=== PATIENT | male | born 1955 | race Caucasian/White ===

== ENCOUNTER 2019-02-28 06:13 | Emergency (ER) | payer MEDICAID ==
[~2019-02-28] VITALS: Ht 177.8 cm; Wt 65.0 kg
[~2019-02-28 06:13] MED LIST: BUPR1FIL3 SL; CLON0.1T PO; ONDA4TAB12 PO
[2019-02-28 06:14] VITALS: BP 150/98
--- NOTE | 2019-02-28 06:32 | NUR ---
SLIT LAMP PLACED IN ROOM
--- NOTE | 2019-02-28 06:32 | NUR ---
PT STATES HE WAS CUTTING WOOD THIS MORNING AND GOT SOMETHING IN HIS RIGHT EYE.
[2019-02-28] MEDS ORDERED: proparacaine 0.5% ophthalmic drops 15ml EACHEYE ONE (06:35)
[2019-02-28] MEDS ORDERED: CefTRIAXone 1000mg IM Kit (w/lidocaine diluent) IM ONE (07:05)
--- NOTE | 2019-02-28 07:19 | NUR ---
PT STATES THAT HE HAS BEEN BLIND IN HIS RIGHT EYE FOR 6 MONTHS.
--- NOTE | 2019-02-28 07:43 | NUR ---
IRRIGATE RIGHT EYE WITH SALINE 20MLS PER MD ORDER.
--- NOTE | 2019-02-28 07:58 | NUR ---
APPLY METAL PATCH OVER RIGHT UNDER WITH 2X2 GAUZE UNDER THE PATCH. PT ASKING FOR FOOD, NOTIFY DR LERMA. HE CAN HAVE FLUIDS, NO FOOD AT THIS TIME. NOTIFY PT. Addendum: 02/28/19 at 08 by MARILEE METAL EYE PATCH TO RIGHT EYE WITH 2X2 GAUZE.
--- NOTE | 2019-02-28 08:03 | NUR ---
PT GIVEN ORANGE AND APPLE JUICE.
[2019-02-28] MEDS ORDERED: HYDROcodone/acetaminophen 10/325mg tab PO ONE (08:45)
--- NOTE | 2019-02-28 08:51 | NUR ---
PT MEDICATED FOR EYE PAIN, PT GIVEN A SANDWICH AND A TAXI IS CALLED TO TAKE PT TO DR CARREON'S OFFICE DIRECTLY.
== END 2019-02-28 08:56 | disposition home or self-care (01) ==
LOC: ER 06:14
DX: S01.111A Laceration without foreign body of right eyelid and periocular area, initial encounter (principal); S05.01XA Injury of conjunctiva and corneal abrasion without foreign body, right eye, initial encounter; G89.29 Other chronic pain; F17.200 Nicotine dependence, unspecified, uncomplicated; F12.90 Cannabis use, unspecified, uncomplicated; Z98.890 Other specified postprocedural states; Z86.19 Personal history of other infectious and parasitic diseases; F11.90 Opioid use, unspecified, uncomplicated; Z56.0 Unemployment, unspecified; Z88.5 Allergy status to narcotic agent; Z79.899 Other long term (current) drug therapy; W22.8XXA Striking against or struck by other objects, initial encounter; Y93.89 Activity, other specified; Y92.89 Other specified places as the place of occurrence of the external cause; Y99.8 Other external cause status
CPT/HCPCS: 96372; 99283; J0696

== ENCOUNTER 2019-05-31 15:17 | Emergency (ER) | payer MEDICAID ==
[~2019-05-31] VITALS: Ht 177.8 cm; Wt 58.0 kg
--- NOTE | 2019-05-31 15:25 | NUR ---
Second call still not in lobby
[2019-05-31] MEDS ORDERED: HYDROcodone/acetaminophen 5mg/325mg tablet PO ONE (16:40)
[2019-05-31 18:01] LABS: BASOPHILS % (AUTO) 0.4 % (0-1); EOSINOPHILS % (AUTO) 0.3 % (0-6); HEMATOCRIT 36.7 % (42.0-52.0); HEMOGLOBIN 12.9 g/dl (14.0-17.9); LYMPHOCYTES # (AUTO) 1.7 X10'3 (1.1-4.8); LYMPHOCYTES % (AUTO) 17.2 % (21-51); MEAN CORPUSCULAR HEMOGLOBIN 32.4 PG (27.0-31.0); MEAN CORPUSCULAR HGB CONC 35.3 g/dL (33.0-36.5); MEAN CORPUSCULAR VOLUME 91.9 FL (78-98); MEAN PLATELET VOLUME 7.1 FL (7.4-10.4); MONOCYTES % (AUTO) 10.3 % (2-12); NEUTROPHILS # (AUTO) 7.3 X10'3 (1.8-7.7); NEUTROPHILS % (AUTO) 71.8 % (42-75); PLATELET COUNT 115 X10'3 (140-440); RED BLOOD COUNT 3.99 X10'6 (4.70-6.10); RED CELL DISTRIBUTION WIDTH 13.8 % (11.5-14.5); WHITE BLOOD COUNT 10.2 X10'3 (4.5-11.0)
[2019-05-31 18:10] LABS: ALANINE AMINOTRANSFERASE 67 U/L (12-78); ALBUMIN 2.9 G/DL (3.4-5.0); ALBUMIN/GLOBULIN RATIO 0.7 (1.1-1.5); ALKALINE PHOSPHATASE 70 IU/L (46-116); ANION GAP 8 (8-16); ASPARTATE AMINO TRANSFERASE 60 U/L (10-37); BILIRUBIN,TOTAL 0.7 MG/DL (0.1-1.0); BLOOD UREA NITROGEN 18 MG/DL (7-18); BUN/CREATININE RATIO 23.7 (5.4-32.0); CALCIUM 8.8 MG/DL (8.5-10.1); CHLORIDE 104 MMOL/L (99-107); CREATININE 0.76 MG/DL (0.60-1.10); GLUCOSE 113 MG/DL (70-104); POTASSIUM 3.6 MMOL/L (3.5-5.1); SODIUM 137 MMOL/L (135-145); TOTAL CARBON DIOXIDE 25.2 MMOL/L (24-32); TOTAL PROTEIN 7.2 G/DL (6.4-8.2); eGFR > 90 ML/MIN
[2019-05-31] MEDS ORDERED: CEPH250T PO (18:13)
[2019-05-31 18:30] VITALS: BP 96/61
--- NOTE | 2019-06-02 15:07 | NUR ---
CALLED [facility]. PT. LOST HIS RX... CALLED IN KEFLEX 250MG PO Q6 HOURS X 10 DAYS #40. CALLED AND LET PT. TO LET PT. KNOW...... [phone],,, UNABLE TO RECIEVE A MESSAGE
== END 2019-05-31 18:24 | disposition home or self-care (01) ==
LOC: ER 15:17
DX: S80.812A Abrasion, left lower leg, initial encounter (principal); S80.811A Abrasion, right lower leg, initial encounter; L03.116 Cellulitis of left lower limb; L03.115 Cellulitis of right lower limb; G89.29 Other chronic pain; F12.90 Cannabis use, unspecified, uncomplicated; F11.90 Opioid use, unspecified, uncomplicated; Z86.19 Personal history of other infectious and parasitic diseases; Z98.890 Other specified postprocedural states; Z56.0 Unemployment, unspecified; Z88.5 Allergy status to narcotic agent; Z79.899 Other long term (current) drug therapy; X58.XXXA Exposure to other specified factors, initial encounter; Y93.89 Activity, other specified; Y92.89 Other specified places as the place of occurrence of the external cause; Y99.8 Other external cause status
CPT/HCPCS: 36415; 80053; 85025; 99283

== ENCOUNTER 2020-02-17 14:20 | Emergency (ER) | payer MEDICAID ==
[~2020-02-17] VITALS: Ht 170.2 cm; Wt 67.3 kg
[2020-02-17] MEDS ORDERED: LIDO700A32 TOP (14:51)
[2020-02-17] MEDS ORDERED: NAPR-56 PO (14:51)
[2020-02-17 15:21] VITALS: BP 146/87
== END 2020-02-17 15:22 | disposition home or self-care (01) ==
LOC: ER 14:21
DX: M25.551 Pain in right hip (principal); K59.00 Constipation, unspecified; J44.9 Chronic obstructive pulmonary disease, unspecified; G89.29 Other chronic pain; F12.90 Cannabis use, unspecified, uncomplicated; F11.90 Opioid use, unspecified, uncomplicated; F17.200 Nicotine dependence, unspecified, uncomplicated; Z86.19 Personal history of other infectious and parasitic diseases; Z98.890 Other specified postprocedural states; Z56.0 Unemployment, unspecified; Z88.5 Allergy status to narcotic agent; Z79.899 Other long term (current) drug therapy
CPT/HCPCS: 99283

== ENCOUNTER 2021-06-12 00:32 | Inpatient (IN) | payer MEDICAID ==
[~2021-06-12] VITALS: Ht 177.8 cm; Wt 65.9 kg
[~2021-06-12 00:32] MED LIST changes: +LIDO700A32 TOP
[2021-06-12] MEDS ORDERED: acetaminophen 325mg tablet PO ONE (01:15)
[2021-06-12 02:01] LABS: BASOPHILS % (AUTO) 0.2 % (0-1); EOSINOPHILS % (AUTO) 0 % (0-6); HEMATOCRIT 35.2 % (42.0-52.0); HEMOGLOBIN 12.4 g/dl (14.0-17.9); LYMPHOCYTES # (AUTO) 0.9 X10'3 (1.1-4.8); LYMPHOCYTES % (AUTO) 6.9 % (21-51); MEAN CORPUSCULAR HGB CONC 35.4 g/dL (33.0-36.5); MEAN CORPUSCULAR VOLUME 87.7 FL (78-98); MEAN PLATELET VOLUME 7.3 FL (7.4-10.4); MONOCYTES # (AUTO) 1.1 X10'3 (0-0.9); MONOCYTES % (AUTO) 8.1 % (2-12); NEUTROPHILS % (AUTO) 84.8 % (42-75); PLATELET COUNT 143 X10'3 (140-440); RED BLOOD COUNT 4.02 X10'6 (4.70-6.10); RED CELL DISTRIBUTION WIDTH 13.7 % (11.5-14.5); WHITE BLOOD COUNT 12.9 X10'3 (4.5-11.0)
[2021-06-12 02:13] LABS: D-DIMER 1.52 MG/L FEU (0-0.50)
[2021-06-12 02:17] LABS: ALANINE AMINOTRANSFERASE 36 U/L (12-78); ALBUMIN 2.7 G/DL (3.4-5.0); ALBUMIN/GLOBULIN RATIO 0.6 (1.1-1.5); ALKALINE PHOSPHATASE 96 IU/L (46-116); ANION GAP 10 (8-16); ASPARTATE AMINO TRANSFERASE 50 U/L (10-37); BILIRUBIN,TOTAL 0.6 MG/DL (0.1-1.0); BLOOD UREA NITROGEN 15 MG/DL (7-18); CALCIUM 8.6 MG/DL (8.5-10.1); CHLORIDE 96 MMOL/L (99-107); CREATININE 0.88 MG/DL (0.60-1.10); GLUCOSE 129 MG/DL (70-104); MAGNESIUM 1.8 MG/DL (1.5-2.4); POTASSIUM 3.3 MMOL/L (3.5-5.1); SODIUM 131 MMOL/L (135-145); TOTAL CARBON DIOXIDE 25.1 MMOL/L (24-32); TOTAL PROTEIN 7.6 G/DL (6.4-8.2); eGFR 87 ML/MIN
[2021-06-12] MEDS ORDERED: TETanus/Pertussis (Acell)/Diphther VAC/PF (Tdap-Adult) 0.5ml syringe IMVAC ONE (02:50)
[2021-06-12] MEDS ORDERED: CefTRIAXone 2gm/D5W 50ml BAG 50 ML IV ONE (02:50)
[2021-06-12] MEDS ORDERED: bacitracin 15gm ointment TP ONE (02:50)
[2021-06-12] MEDS ORDERED: vancomycin/NS 1 GM ADD-VANTAGE 250 ML IV ONE (02:50)
[2021-06-12] MEDS ORDERED: ondansetron 4mg rapidly disintigrating tab PO PRN (04:05)
[2021-06-12] MEDS ORDERED: acetaminophen 325mg tablet PO PRN ×2 (04:05)
[2021-06-12] MEDS ORDERED: bisacodyl 10mg suppository rectal RC PRN (04:05)
[2021-06-12] MEDS ORDERED: magnesium hydroxide 30ml (MOM) UD suspension PO PRN (04:05)
[2021-06-12] MEDS ORDERED: diphenhydrAMINE 50 mg/ml inj IV PRN (04:05)
[2021-06-12] MEDS ORDERED: diphenhydrAMINE 25mg capsule PO PRN (04:05)
[2021-06-12] MEDS ORDERED: mag hydrox/Alum hydrox/simeth 30ml oral suspension PO PRN (04:05)
[2021-06-12] MEDS ORDERED: VANCOMYCIN 1GM/200ML IVPB 200 ML IV ONE (04:15)
[2021-06-12] MEDS ORDERED: TIZA-205 PO (04:27)
[2021-06-12] MEDS ORDERED: IBUP-1985 PO (04:27)
[2021-06-12] MEDS ORDERED: FLUO-167 PO (04:27)
[2021-06-12] MEDS ORDERED: DIAZ10TA4 PO (04:27)
[2021-06-12] MEDS: potassium Cl 20mEq in NS 1,000 ML IV SCH ×2 (04:34→13:16)
[2021-06-12] MEDS: morphine 2 MG/ML inj. syringe IV PRN ×3 (04:34→20:18)
[2021-06-12] MEDS ORDERED: morphine 4 MG/ML inj SYRINge IM PRN (06:05)
[2021-06-12] MEDS ORDERED: morphine 2 MG/ML inj. syringe IV PRN (06:05)
[2021-06-12] MEDS: HYDROcodone/acetaminophen 5mg/325mg tablet PO PRN ×4 (06:09→23:03)
[2021-06-12] MEDS ORDERED: morphine 4 MG/ML inj SYRINge IV PRN (06:10)
--- NOTE | 2021-06-12 06:14 | NUR ---
pt c/o severe pain to his legs, had dose of morphine at 0434. call out to dr gomez, orders taken for higher doses of pain medication, stated ok to give further dose of pain medication now.
[2021-06-12] MEDS ORDERED: diazepam 5mg tablet PO PRN (07:00)
[2021-06-12] MEDS: CefTRIAXone/D5W-Rocephin 1gm 50 ML IV SCH (09:00)
[2021-06-12 09:11] VITALS: BP 138/76
[2021-06-12] MEDS: tizanidine 4mg tablet PO SCH ×3 (10:22→20:06)
[2021-06-12] MEDS: pantoprazole 40mg Tablet.DR PO SCH (10:22)
[2021-06-12] MEDS: docusate sod 100mg capsule PO SCH ×2 (10:23→20:06)
[2021-06-12] MEDS: FLUoxetine 20mg capsule PO SCH (10:23)
[2021-06-12] MEDS: heparin, porcine 5000 units/ml vial SQ SCH ×2 (10:25→20:07)
[2021-06-12] MEDS: ondansetron/PF 4mg/2ml inj IV PRN (10:40)
[2021-06-12 11:00] VITALS: BP 143/78
--- NOTE | 2021-06-12 19:16 | NUR ---
Patient in room [facility]. I have received report from JADE Crawford and had the opportunity to ask questions and assume patient care.
--- NOTE | 2021-06-12 19:26 | NUR ---
Patient in room [facility]. I have received report from Gabi HANSEN and had the opportunity to ask questions and assume patient care.
[2021-06-12 20:00] VITALS: BP 89/49
[2021-06-12] MEDS: lactobacillus rhamnosus 10,000 MMU CELLS/CAPSULE PO SCH (20:06)
[2021-06-12 20:39] VITALS: BP 96/58
[2021-06-12 23:49] VITALS: BP 98/53
[2021-06-13] MEDS: potassium Cl 20mEq in NS 1,000 ML IV SCH ×3 (00:05→13:29)
[2021-06-13] MEDS: HYDROcodone/acetaminophen 5mg/325mg tablet PO PRN ×2 (02:59→08:15)
--- NOTE | 2021-06-13 04:28 | NUR ---
I have reviewed and agree with all interventions, assessments performed and documented by Denise HANSEN.
[2021-06-13] MEDS: morphine 2 MG/ML inj. syringe IV PRN ×3 (05:09→18:01)
--- NOTE | 2021-06-13 06:15 | NUR ---
Problems reprioritized. Patient report given, questions answered & plan of care reviewed with Gabi HANSEN.
--- NOTE | 2021-06-13 06:19 | NUR ---
Problems reprioritized. Patient report given, questions answered & plan of care reviewed with . JADE Crawford.
[2021-06-13 06:42] LABS: BASOPHILS % (AUTO) 0.1 % (0-1); EOSINOPHILS % (AUTO) 0.2 % (0-6); HEMATOCRIT 33.4 % (42.0-52.0); HEMOGLOBIN 11.5 g/dl (14.0-17.9); LYMPHOCYTES # (AUTO) 1.6 X10'3 (1.1-4.8); LYMPHOCYTES % (AUTO) 14.4 % (21-51); MEAN CORPUSCULAR HEMOGLOBIN 31.2 PG (27.0-31.0); MEAN CORPUSCULAR HGB CONC 34.6 g/dL (33.0-36.5); MEAN CORPUSCULAR VOLUME 90.1 FL (78-98); MEAN PLATELET VOLUME 8.2 FL (7.4-10.4); MONOCYTES # (AUTO) 1.2 X10'3 (0-0.9); MONOCYTES % (AUTO) 11.1 % (2-12); NEUTROPHILS % (AUTO) 74.2 % (42-75); PLATELET COUNT 117 X10'3 (140-440); RED CELL DISTRIBUTION WIDTH 13.7 % (11.5-14.5); WHITE BLOOD COUNT 10.9 X10'3 (4.5-11.0)
[2021-06-13 06:57] LABS: ALANINE AMINOTRANSFERASE 23 U/L (12-78); ALBUMIN/GLOBULIN RATIO 0.5 (1.1-1.5); ALKALINE PHOSPHATASE 87 IU/L (46-116); ANION GAP 5 (8-16); ASPARTATE AMINO TRANSFERASE 27 U/L (10-37); BILIRUBIN,TOTAL 0.7 MG/DL (0.1-1.0); BLOOD UREA NITROGEN 13 MG/DL (7-18); BUN/CREATININE RATIO 18.6 (5.4-32.0); CALCIUM 8.1 MG/DL (8.5-10.1); CHLORIDE 102 MMOL/L (99-107); GLUCOSE 112 MG/DL (70-104); POTASSIUM 3.6 MMOL/L (3.5-5.1); SODIUM 131 MMOL/L (135-145); TOTAL CARBON DIOXIDE 24.1 MMOL/L (24-32); TOTAL PROTEIN 6.3 G/DL (6.4-8.2); eGFR > 90 ML/MIN
[2021-06-13 07:00] VITALS: BP 99/61
--- NOTE | 2021-06-13 07:38 | NUR ---
message sent to dr mendoza regarding chest pain, pain meds, and painful urination
[2021-06-13] MEDS: tizanidine 4mg tablet PO SCH ×2 (08:14→13:16)
[2021-06-13] MEDS: FLUoxetine 20mg capsule PO SCH (08:14)
[2021-06-13] MEDS: pantoprazole 40mg Tablet.DR PO SCH (08:14)
[2021-06-13] MEDS: docusate sod 100mg capsule PO SCH ×2 (08:14→20:07)
[2021-06-13] MEDS: heparin, porcine 5000 units/ml vial SQ SCH ×2 (08:15→20:17)
[2021-06-13] MEDS: CefTRIAXone/D5W-Rocephin 1gm 50 ML IV SCH (08:15)
[2021-06-13] MEDS: lactobacillus rhamnosus 10,000 MMU CELLS/CAPSULE PO SCH ×2 (08:15→20:08)
[2021-06-13 10:00] VITALS: BP 129/84
--- NOTE | 2021-06-13 13:00 | NUR ---
Met with patient in regards to substance use and to see if patient was interested in treatment options. Patient would like to get established with [facility]. I gave patient my number to call me when he is going to be discharged and I will help him get set up there.
[2021-06-13] MEDS: vancomycin/NS 1 GM ADD-VANTAGE 250 ML X 1 DOSE IV SCH (13:16)
--- NOTE | 2021-06-13 16:37 | NUR ---
PAGER ID: [phone] MESSAGE: PAGER ID: [phone] MESSAGE: social work said that pt was taking suboxone. please resume. also do you want a urine cult for his c/o painful urination? [address] paresh german rn [phone]
[2021-06-13 18:00] VITALS: BP 111/61
[2021-06-13] MEDS: mineral oil/petrolatum, white cream 113gm jar TP SCH (18:00)
[2021-06-13] MEDS ORDERED: cefepime 1GM/NS ADD-VANTAGE 100 ML IV SCH (20:00)
[2021-06-13] MEDS: ondansetron/PF 4mg/2ml inj IV PRN (20:04)
[2021-06-14] VITALS: BP 112/67
[2021-06-14] MEDS: temazepam 15mg capsule PO PRN ×2 (00:50→21:42)
[2021-06-14] MEDS: tizanidine 4mg tablet PO SCH ×4 (00:50→21:42)
[2021-06-14 06:05] LABS: BASOPHILS # (AUTO) 0.1 X10'3 (0-0.2); BASOPHILS % (AUTO) 0.6 % (0-1); EOSINOPHILS # (AUTO) 0.1 X10'3 (0-0.9); EOSINOPHILS % (AUTO) 0.9 % (0-6); HEMATOCRIT 34.2 % (42.0-52.0); HEMOGLOBIN 11.7 g/dl (14.0-17.9); LYMPHOCYTES # (AUTO) 1.5 X10'3 (1.1-4.8); LYMPHOCYTES % (AUTO) 16.5 % (21-51); MEAN CORPUSCULAR HEMOGLOBIN 30.6 PG (27.0-31.0); MEAN CORPUSCULAR HGB CONC 34.4 g/dL (33.0-36.5); MEAN CORPUSCULAR VOLUME 88.9 FL (78-98); MEAN PLATELET VOLUME 8.3 FL (7.4-10.4); MONOCYTES # (AUTO) 0.8 X10'3 (0-0.9); NEUTROPHILS # (AUTO) 6.6 X10'3 (1.8-7.7); PLATELET COUNT 128 X10'3 (140-440); RED BLOOD COUNT 3.84 X10'6 (4.70-6.10); RED CELL DISTRIBUTION WIDTH 13.6 % (11.5-14.5)
[2021-06-14] MEDS: potassium Cl 20mEq in NS 1,000 ML IV SCH ×2 (06:05→17:01)
[2021-06-14 06:32] LABS: ALANINE AMINOTRANSFERASE 14 U/L (12-78); ALBUMIN 1.8 G/DL (3.4-5.0); ALBUMIN/GLOBULIN RATIO 0.4 (1.1-1.5); ALKALINE PHOSPHATASE 85 IU/L (46-116); ANION GAP 9 (8-16); ASPARTATE AMINO TRANSFERASE 29 U/L (10-37); BILIRUBIN,TOTAL 0.4 MG/DL (0.1-1.0); BLOOD UREA NITROGEN 14 MG/DL (7-18); BUN/CREATININE RATIO 21.9 (5.4-32.0); CALCIUM 8.1 MG/DL (8.5-10.1); CHLORIDE 108 MMOL/L (99-107); CREATININE 0.64 MG/DL (0.60-1.10); GLUCOSE 114 MG/DL (70-104); POTASSIUM 3.9 MMOL/L (3.5-5.1); SODIUM 138 MMOL/L (135-145); TOTAL CARBON DIOXIDE 21.3 MMOL/L (24-32); eGFR > 90 ML/MIN
[2021-06-14 07:00] VITALS: BP 114/61
[2021-06-14] MEDS: docusate sod 100mg capsule PO SCH ×2 (09:20→19:50)
[2021-06-14] MEDS: FLUoxetine 20mg capsule PO SCH (09:20)
[2021-06-14] MEDS: ondansetron/PF 4mg/2ml inj IV PRN (09:20)
[2021-06-14] MEDS: morphine 2 MG/ML inj. syringe IV PRN ×2 (09:20→19:51)
[2021-06-14] MEDS: mineral oil/petrolatum, white cream 113gm jar TP SCH (09:20)
[2021-06-14] MEDS: lactobacillus rhamnosus 10,000 MMU CELLS/CAPSULE PO SCH ×2 (09:20→19:50)
[2021-06-14] MEDS: heparin, porcine 5000 units/ml vial SQ SCH ×2 (09:21→19:58)
[2021-06-14] MEDS: cefepime 1GM in D5W 50mL 50 ML IV SCH ×2 (09:26→20:04)
[2021-06-14] MEDS: vancomycin/NS 1 GM ADD-VANTAGE 250 ML X 1 DOSE IV SCH (09:26)
[2021-06-14] MEDS: pantoprazole 40mg Tablet.DR PO SCH (09:26)
[2021-06-14 11:00] VITALS: BP 122/67
[2021-06-14] MEDS: traMADol 50MG tablet PO PRN ×2 (14:35→21:50)
[2021-06-14 19:37] VITALS: BP 115/66
[2021-06-14 21:30] LABS: CLARITY,URINE CLEAR (Clear); COLOR,URINE YELLOW (Yellow); GLUCOSE, URINE NEGATIVE (Neg); KETONES,URINE NEGATIVE (Neg); LEUKOCYTE ESTERASE ,URINE NEGATIVE (Neg); NITRITES, URINE NEGATIVE (Neg); OCCULT BLOOD,URINE NEGATIVE (Neg); PROTEIN,URINE NEGATIVE (Neg)
[2021-06-14 21:44] LABS: UA COLLECTION TYPE CLN CATCH MIDSTREAM
[2021-06-15] VITALS: BP 122/67
[2021-06-15] MEDS: potassium Cl 20mEq in NS 1,000 ML IV SCH ×3 (02:05→22:05)
[2021-06-15 05:47] LABS: BASOPHILS % (AUTO) 0.4 % (0-1); EOSINOPHILS # (AUTO) 0.1 X10'3 (0-0.9); HEMATOCRIT 33.5 % (42.0-52.0); HEMOGLOBIN 11.5 g/dl (14.0-17.9); LYMPHOCYTES # (AUTO) 1.6 X10'3 (1.1-4.8); MEAN CORPUSCULAR HEMOGLOBIN 30.5 PG (27.0-31.0); MEAN CORPUSCULAR HGB CONC 34.5 g/dL (33.0-36.5); MEAN CORPUSCULAR VOLUME 88.5 FL (78-98); MEAN PLATELET VOLUME 7.8 FL (7.4-10.4); MONOCYTES # (AUTO) 0.6 X10'3 (0-0.9); MONOCYTES % (AUTO) 8.7 % (2-12); NEUTROPHILS # (AUTO) 4.3 X10'3 (1.8-7.7); NEUTROPHILS % (AUTO) 65.9 % (42-75); PLATELET COUNT 160 X10'3 (140-440); RED BLOOD COUNT 3.78 X10'6 (4.70-6.10); RED CELL DISTRIBUTION WIDTH 13.6 % (11.5-14.5); WHITE BLOOD COUNT 6.5 X10'3 (4.5-11.0)
[2021-06-15 05:55] LABS: ALANINE AMINOTRANSFERASE 29 U/L (12-78); ALBUMIN 1.9 G/DL (3.4-5.0); ALBUMIN/GLOBULIN RATIO 0.4 (1.1-1.5); ALKALINE PHOSPHATASE 99 IU/L (46-116); ANION GAP 4 (8-16); ASPARTATE AMINO TRANSFERASE 40 U/L (10-37); BILIRUBIN,TOTAL 0.5 MG/DL (0.1-1.0); BLOOD UREA NITROGEN 11 MG/DL (7-18); BUN/CREATININE RATIO 15.5 (5.4-32.0); CALCIUM 8.1 MG/DL (8.5-10.1); CHLORIDE 106 MMOL/L (99-107); CREATININE 0.71 MG/DL (0.60-1.10); GLUCOSE 99 MG/DL (70-104); SODIUM 134 MMOL/L (135-145); TOTAL CARBON DIOXIDE 23.7 MMOL/L (24-32); TOTAL PROTEIN 6.4 G/DL (6.4-8.2); eGFR > 90 ML/MIN
[2021-06-15] MEDS: cefepime 1GM in D5W 50mL 50 ML IV SCH ×2 (07:40→21:03)
[2021-06-15] MEDS: heparin, porcine 5000 units/ml vial SQ SCH ×2 (07:41→21:04)
[2021-06-15] MEDS: pantoprazole 40mg Tablet.DR PO SCH (07:41)
[2021-06-15] MEDS: FLUoxetine 20mg capsule PO SCH (07:41)
[2021-06-15] MEDS: traMADol 50MG tablet PO PRN ×3 (07:41→21:09)
[2021-06-15] MEDS: tizanidine 4mg tablet PO SCH ×3 (07:42→21:03)
[2021-06-15] MEDS: docusate sod 100mg capsule PO SCH ×2 (07:42→21:16)
[2021-06-15] MEDS: lactobacillus rhamnosus 10,000 MMU CELLS/CAPSULE PO SCH ×2 (07:42→21:03)
[2021-06-15 08:00] VITALS: BP 139/73
[2021-06-15] MEDS: mineral oil/petrolatum, white cream 113gm jar TP SCH (10:00)
[2021-06-15] MEDS ORDERED: VANCOMYCIN LEVEL IV ONE (10:30)
[2021-06-15 11:00] VITALS: BP 124/73
[2021-06-15] MEDS: baclofen 10mg tablet PO PRN ×2 (12:32→21:05)
[2021-06-15] MEDS: VANCOmycin 1250MG/NS 250ml Bag 250 ML IV SCH ×2 (12:34→22:55)
[2021-06-15] MEDS: HYDROcodone/acetaminophen 10/325mg tab PO PRN (17:02)
[2021-06-15 18:00] VITALS: BP 136/71
[2021-06-15 19:34] VITALS: BP 136/71
[2021-06-15] MEDS: temazepam 15mg capsule PO PRN (21:03)
[2021-06-16] VITALS: BP 131/66
--- NOTE | 2021-06-16 00:59 | NUR ---
Patient,s son called around 0050 asking to speak with patient.Caller informed that pt would be informed to call him if awake.RN checked on patient who appeared to be sleeping .
[2021-06-16] MEDS: HYDROcodone/acetaminophen 10/325mg tab PO PRN (03:38)
--- NOTE | 2021-06-16 03:47 | NUR ---
Pt pulled IV out.Two attempts to start a new IV unsuccessful;[employer] DEVELOPER requested to assist.
--- NOTE | 2021-06-16 06:40 | NUR ---
Patient in room [facility]. I have received report from Mary HANSEN and had the opportunity to ask questions and assume patient care.
[2021-06-16 06:46] LABS: BASOPHILS % (AUTO) 0.3 % (0-1); EOSINOPHILS # (AUTO) 0.1 X10'3 (0-0.9); EOSINOPHILS % (AUTO) 1.4 % (0-6); HEMATOCRIT 33.9 % (42.0-52.0); HEMOGLOBIN 11.9 g/dl (14.0-17.9); LYMPHOCYTES # (AUTO) 1.3 X10'3 (1.1-4.8); LYMPHOCYTES % (AUTO) 19.3 % (21-51); MEAN CORPUSCULAR HEMOGLOBIN 30.9 PG (27.0-31.0); MEAN CORPUSCULAR VOLUME 88.4 FL (78-98); MEAN PLATELET VOLUME 7.6 FL (7.4-10.4); MONOCYTES # (AUTO) 0.5 X10'3 (0-0.9); MONOCYTES % (AUTO) 8.1 % (2-12); NEUTROPHILS # (AUTO) 4.6 X10'3 (1.8-7.7); NEUTROPHILS % (AUTO) 70.9 % (42-75); PLATELET COUNT 188 X10'3 (140-440); RED BLOOD COUNT 3.83 X10'6 (4.70-6.10); RED CELL DISTRIBUTION WIDTH 13.7 % (11.5-14.5); WHITE BLOOD COUNT 6.5 X10'3 (4.5-11.0)
[2021-06-16 07:00] VITALS: BP 146/81
--- NOTE | 2021-06-16 07:02 | NUR ---
Patient in room [facility] 345B. I have received report from JADE GILLETTE and had the opportunity to ask questions and assume patient care.
[2021-06-16 07:08] LABS: ALANINE AMINOTRANSFERASE 30 U/L (12-78); ALBUMIN 2.1 G/DL (3.4-5.0); ALBUMIN/GLOBULIN RATIO 0.4 (1.1-1.5); ALKALINE PHOSPHATASE 99 IU/L (46-116); ANION GAP 9 (8-16); ASPARTATE AMINO TRANSFERASE 37 U/L (10-37); BILIRUBIN,TOTAL 0.5 MG/DL (0.1-1.0); BLOOD UREA NITROGEN 11 MG/DL (7-18); BUN/CREATININE RATIO 16.7 (5.4-32.0); CALCIUM 8.3 MG/DL (8.5-10.1); CHLORIDE 108 MMOL/L (99-107); CREATININE 0.66 MG/DL (0.60-1.10); GLUCOSE 107 MG/DL (70-104); POTASSIUM 4.1 MMOL/L (3.5-5.1); SODIUM 140 MMOL/L (135-145); TOTAL CARBON DIOXIDE 22.7 MMOL/L (24-32); TOTAL PROTEIN 6.8 G/DL (6.4-8.2); eGFR > 90 ML/MIN
[2021-06-16] MEDS: pantoprazole 40mg Tablet.DR PO SCH (07:31)
[2021-06-16] MEDS: docusate sod 100mg capsule PO SCH (07:32)
[2021-06-16] MEDS: lactobacillus rhamnosus 10,000 MMU CELLS/CAPSULE PO SCH (07:33)
[2021-06-16] MEDS: FLUoxetine 20mg capsule PO SCH (07:34)
[2021-06-16] MEDS: tizanidine 4mg tablet PO SCH ×2 (07:35→14:07)
[2021-06-16] MEDS: heparin, porcine 5000 units/ml vial SQ SCH (07:37)
[2021-06-16] MEDS: mineral oil/petrolatum, white cream 113gm jar TP SCH (08:00)
[2021-06-16] MEDS: potassium Cl 20mEq in NS 1,000 ML IV SCH (08:05)
[2021-06-16] MEDS: cefepime 1GM in D5W 50mL 50 ML IV SCH (09:42)
--- NOTE | 2021-06-16 10:16 | NUR ---
PATIENT REFUSING LYNN RHODES TO LEGS Addendum: 06/16/21 at 1022 by Lynn Multani RN Amended: Links added.
[2021-06-16 11:00] VITALS: BP 125/78
[2021-06-16] MEDS: VANCOmycin 1250MG/NS 250ml Bag 250 ML IV SCH (11:41)
--- NOTE | 2021-06-16 11:41 | NUR ---
as clinical instructor i reviewed student documentation
--- NOTE | 2021-06-16 11:53 | NUR ---
Problems reprioritized. Patient report given, questions answered & plan of care reviewed with Mary HANSEN.
[2021-06-16] MEDS ORDERED: DOXY100C2 PO (13:47)
--- NOTE | 2021-06-16 15:08 | NUR ---
PATIENT STABLE AND APPROPRIATE FOR DISCHARGE, IV TAKEN OUT, EDUCATION GIVEN, PATIENT TAKEN TO LOBBY BY WHEELCHAIR TO AN AWAITING CAR WHERE FRIEND WILL TAKE PATIENT HOME
[2021-06-16] MEDS ORDERED: VANCOMYCIN LEVEL IV ONE (22:30)
== END 2021-06-16 15:08 | disposition home or self-care (01) | DRG 383 ==
LOC: ER 00:33 → ED HOLD 04:10 → SUR 3N 08:51
PROVIDERS: ADMIT Family Medicine; ATTEND Internal Medicine
PROC: 3E0234Z Introduction of Serum, Toxoid and Vaccine into Muscle, Percutaneous Approach (ICD-10-PCS; principal; 2021-06-12)
DX: L03.116 Cellulitis of left lower limb (principal); E87.1 Hypo-osmolality and hyponatremia; R29.6 Repeated falls; L03.115 Cellulitis of right lower limb; E86.1 Hypovolemia; E87.6 Hypokalemia; F17.210 Nicotine dependence, cigarettes, uncomplicated; I87.8 Other specified disorders of veins; R26.9 Unspecified abnormalities of gait and mobility; S80.812A Abrasion, left lower leg, initial encounter; S80.811A Abrasion, right lower leg, initial encounter; S80.12XA Contusion of left lower leg, initial encounter; S80.11XA Contusion of right lower leg, initial encounter; W18.39XA Other fall on same level, initial encounter; M54.50 Low back pain, unspecified; F32.A Depression, unspecified; G89.4 Chronic pain syndrome; J44.9 Chronic obstructive pulmonary disease, unspecified; B19.20 Unspecified viral hepatitis C without hepatic coma; Z23 Encounter for immunization; Z88.5 Allergy status to narcotic agent; Z87.01 Personal history of pneumonia (recurrent); Z56.0 Unemployment, unspecified; Z79.899 Other long term (current) drug therapy; Y93.89 Activity, other specified; Y92.89 Other specified places as the place of occurrence of the external cause; Y99.8 Other external cause status
CPT/HCPCS: 36415; 73590; 80053; 80202; 81003; 83605; 83735; 84145; 85025; 85379; 87040; 90471; 90715; 93971; 96365; 96368; 99285; G0378; J0692; J0696; J1644; J2270; J2405; J3370; J3480

== ENCOUNTER 2021-07-22 14:08 | Inpatient (IN) | payer MEDICAID ==
[~2021-07-22] VITALS: Ht 175.3 cm; Wt 59.0 kg
[~2021-07-22 14:08] MED LIST changes: -BUPR1FIL3 SL; -CLON0.1T PO; +DIAZ10TA4 PO; +FLUO-167 PO; +IBUP-1985 PO; -LIDO700A32 TOP; -ONDA4TAB12 PO; +TIZA-205 PO
[2021-07-22] MEDS ORDERED: iohexol 300mg/ml 100ml inj. ONE (14:40)
[2021-07-22 15:02] LABS: BASOPHILS % (AUTO) 0.1 % (0-1); EOSINOPHILS % (AUTO) 0.1 % (0-6); HEMATOCRIT 43.7 % (42.0-52.0); HEMOGLOBIN 14.4 g/dl (14.0-17.9); LYMPHOCYTES # (AUTO) 0.9 X10'3 (1.1-4.8); LYMPHOCYTES % (AUTO) 4.5 % (21-51); MEAN CORPUSCULAR HEMOGLOBIN 30.1 PG (27.0-31.0); MEAN CORPUSCULAR VOLUME 91.2 FL (78-98); MONOCYTES # (AUTO) 0.5 X10'3 (0-0.9); MONOCYTES % (AUTO) 2.4 % (2-12); NEUTROPHILS # (AUTO) 18.7 X10'3 (1.8-7.7); NEUTROPHILS % (AUTO) 92.9 % (42-75); PLATELET COUNT 125 X10'3 (140-440); RED BLOOD COUNT 4.79 X10'6 (4.70-6.10); RED CELL DISTRIBUTION WIDTH 15.7 % (11.5-14.5); WHITE BLOOD COUNT 20.2 X10'3 (4.5-11.0)
[2021-07-22 15:14] LABS: ALANINE AMINOTRANSFERASE 19 U/L (12-78); ALBUMIN 2.8 G/DL (3.4-5.0); ALBUMIN/GLOBULIN RATIO 0.5 (1.1-1.5); ALKALINE PHOSPHATASE 102 IU/L (46-116); ANION GAP 8 (8-16); ASPARTATE AMINO TRANSFERASE 29 U/L (10-37); BILIRUBIN,TOTAL 1.6 MG/DL (0.1-1.0); BLOOD UREA NITROGEN 34 MG/DL (7-18); BUN/CREATININE RATIO 42.5 (5.4-32.0); CALCIUM 9.4 MG/DL (8.5-10.1); CHLORIDE 95 MMOL/L (99-107); GLUCOSE 82 MG/DL (70-104); SODIUM 128 MMOL/L (135-145); TOTAL CARBON DIOXIDE 25.1 MMOL/L (24-32); TOTAL PROTEIN 8.1 G/DL (6.4-8.2); eGFR > 90 ML/MIN
[2021-07-22] MEDS ORDERED: morphine 5 MG/ML injection IV PRN (16:15)
[2021-07-22] MEDS ORDERED: morphine 4 MG/ML inj SYRINge IV PRN (16:30)
[2021-07-22] MEDS ORDERED: piperacillin/tazo 3.375gm/50ml 50 ML IV ONE (16:40)
[2021-07-22] MEDS ORDERED: normal saline 1000ML IV soln IV ONE (16:40)
[2021-07-22] MEDS ORDERED: ondansetron/PF 4mg/2ml inj IV PRN (20:15)
[2021-07-22] MEDS ORDERED: bisacodyl 10mg suppository rectal RC PRN (20:15)
[2021-07-22] MEDS ORDERED: acetaminophen 325mg tablet PO PRN ×2 (20:15)
[2021-07-22] MEDS ORDERED: diphenhydrAMINE 50 mg/ml inj IV PRN (20:15)
[2021-07-22] MEDS ORDERED: HYDROmorphone inj. 0.5 MG/0.5 ML DISP.SYRIN IV PRN (20:15)
[2021-07-22] MEDS ORDERED: ipratropium/albuterol 3ml nebule NEB PRN (20:15)
[2021-07-22] MEDS ORDERED: diphenhydrAMINE 25mg capsule PO PRN (20:15)
[2021-07-22] MEDS ORDERED: ondansetron 4mg rapidly disintigrating tab PO PRN (20:15)
[2021-07-22] MEDS ORDERED: magnesium hydroxide 30ml (MOM) UD suspension PO PRN (20:15)
[2021-07-22] MEDS ORDERED: metoclopramide 5 mg/ml inj IV PRN (20:15)
[2021-07-22] MEDS ORDERED: morphine 2 MG/ML inj. syringe IV PRN (20:15)
[2021-07-22] MEDS ORDERED: mag hydrox/Alum hydrox/simeth 30ml oral suspension PO PRN (20:15)
[2021-07-22] MEDS ORDERED: potassium CL 10mEq/100ml bag 100 ML IV PRN (20:50)
[2021-07-22] MEDS ORDERED: magnesium Cl slow-release 64mg tablet PO PRN (20:50)
[2021-07-22] MEDS ORDERED: magnesium 4gm in 100ml NS 100 ML IV PRN (20:50)
[2021-07-22] MEDS ORDERED: potassium Cl 20 mEq SR tablet PO PRN ×2 (20:50)
[2021-07-22] MEDS ORDERED: temazepam 15mg capsule PO PRN (21:00)
[2021-07-22 21:04] LABS: HEMOGLOBIN A1C 5.4 % (4.5-6.2)
[2021-07-22 23:00] VITALS: BP 108/54
[2021-07-22] MEDS: tizanidine 4mg tablet PO SCH (23:13)
[2021-07-22] MEDS: HYDROcodone/acetaminophen 5mg/325mg tablet PO PRN (23:13)
[2021-07-22] MEDS: normal saline 1000ml 1,000 ML IV SCH (23:14)
[2021-07-23] MEDS: vancomycin/NS 1 GM ADD-VANTAGE 250 ML IV SCH ×3 (01:09→20:32)
[2021-07-23 02:00] VITALS: BP 98/51
[2021-07-23] MEDS ORDERED: methadone 10mg tablet PO ONE ×2 (03:30→05:10)
--- NOTE | 2021-07-23 03:40 | NUR ---
Patient received from the ER at 11p, in alert and responsive state, with 9/10 chest pain, restless and diaphoretic. Patient administered [place] 5/325 PO PRN, and patient slept afterwards. At 2.30a patient woke up with screaming episodes, restless, diaphoretic, stating he was withdrawing from Methadone. Stated he had been on Methadone 50mg PO daily "For weeks", for treatment of heroine addiction. States he had been [facility]ad[facility] Will [facility] at 5am. MD Ward made aware, and ordered the patient to continue the medication here. Pharmacy notified, and they stated they cannot order the 50mg daily until verification from the [facility]. 20mg ordered one time, noted and carried out, and administered to the patient at 3.35am. Will continue to monitor patient.
[2021-07-23 06:00] VITALS: BP 100/54
[2021-07-23 06:45] LABS: URINE AMPHETAMINE SCREEN POSITIVE (Neg); URINE BARBITUATE SCREEN NEGATIVE (Neg); URINE BENZODIAZEPINES SCREEN NEGATIVE (Neg); URINE CANNABINOID SCREEN POSITIVE (Neg); URINE COCAINE SCREEN NEGATIVE (Neg); URINE METHADONE SCREEN POSITIVE (Neg); URINE OPIATE SCREEN POSITIVE (Neg); URINE PHENCYCLIDINE SCREEN NEGATIVE (Neg)
--- NOTE | 2021-07-23 06:45 | NUR ---
Patient in room PCU 3022. I have received report from AYESHA Herr and had the opportunity to ask questions and assume patient care.
[2021-07-23 06:46] LABS: CLARITY,URINE CLEAR (Clear); COLOR,URINE YELLOW (Yellow); GLUCOSE, URINE NEGATIVE (Neg); KETONES,URINE NEGATIVE (Neg); LEUKOCYTE ESTERASE ,URINE NEGATIVE (Neg); NITRITES, URINE NEGATIVE (Neg); OCCULT BLOOD,URINE NEGATIVE (Neg); PH,URINE 6.5 (4.8-8.0); PROTEIN,URINE NEGATIVE (Neg)
[2021-07-23 06:48] LABS: UA COLLECTION TYPE NON-SPECIFIED
[2021-07-23 07:06] LABS: BASOPHILS % (AUTO) 0.1 % (0-1); EOSINOPHILS % (AUTO) 0.3 % (0-6); HEMATOCRIT 34.9 % (42.0-52.0); HEMOGLOBIN 11.7 g/dl (14.0-17.9); LYMPHOCYTES # (AUTO) 0.8 X10'3 (1.1-4.8); LYMPHOCYTES % (AUTO) 6.8 % (21-51); MEAN CORPUSCULAR HEMOGLOBIN 30.5 PG (27.0-31.0); MEAN CORPUSCULAR HGB CONC 33.5 g/dL (33.0-36.5); MEAN PLATELET VOLUME 8.3 FL (7.4-10.4); MONOCYTES # (AUTO) 0.7 X10'3 (0-0.9); MONOCYTES % (AUTO) 5.6 % (2-12); NEUTROPHILS # (AUTO) 10.9 X10'3 (1.8-7.7); NEUTROPHILS % (AUTO) 87.2 % (42-75); PLATELET COUNT 90 X10'3 (140-440); RED BLOOD COUNT 3.84 X10'6 (4.70-6.10); RED CELL DISTRIBUTION WIDTH 15.1 % (11.5-14.5); WHITE BLOOD COUNT 12.5 X10'3 (4.5-11.0)
[2021-07-23 07:10] LABS: APTT 29 SECONDS (22-32)
[2021-07-23] MEDS: K and/or MAG REPLACEMENT MC SCH ×2 (08:00→20:00)
[2021-07-23] MEDS ORDERED: piperacillin/tazo 4.5gm/100ml 100 ML IV SCH (08:00)
[2021-07-23] MEDS: heparin, porcine 5000 units/ml vial SQ SCH ×2 (08:00→20:00)
[2021-07-23 08:06] LABS: ALANINE AMINOTRANSFERASE 11 U/L (12-78); ALBUMIN/GLOBULIN RATIO 0.5 (1.1-1.5); ALKALINE PHOSPHATASE 86 IU/L (46-116); ANION GAP 8 (8-16); ASPARTATE AMINO TRANSFERASE 25 U/L (10-37); BILIRUBIN,TOTAL 1.4 MG/DL (0.1-1.0); BLOOD UREA NITROGEN 27 MG/DL (7-18); BUN/CREATININE RATIO 40.3 (5.4-32.0); CALCIUM 8.4 MG/DL (8.5-10.1); CHLORIDE 104 MMOL/L (99-107); CHOL/HDL RATIO 2.8 (0.00-4.99); CHOLESTEROL 81 MG/DL (0-200); CREATININE 0.67 MG/DL (0.60-1.10); GLUCOSE 92 MG/DL (70-104); HDL CHOLESTEROL 29 MG/DL (35-60); LDL CHOLESTEROL 28 MG/DL (50-100); MAGNESIUM 2.3 MG/DL (1.5-2.4); PHOSPHORUS 2.4 MG/DL (2.3-4.5); SODIUM 136 MMOL/L (135-145); TOTAL CARBON DIOXIDE 23.6 MMOL/L (24-32); TOTAL PROTEIN 6.4 G/DL (6.4-8.2); TRIGLYCERIDES 78 MG/DL (20-135); eGFR > 90 ML/MIN
[2021-07-23] MEDS: pantoprazole 40mg Tablet.DR PO SCH (08:17)
[2021-07-23] MEDS: FLUoxetine 20mg capsule PO SCH (08:17)
[2021-07-23] MEDS: docusate sod 100mg capsule PO SCH ×2 (08:17→20:17)
[2021-07-23] MEDS: tizanidine 4mg tablet PO SCH ×3 (08:17→20:14)
[2021-07-23] MEDS: HYDROcodone/acetaminophen 5mg/325mg tablet PO PRN (08:24)
[2021-07-23 11:00] VITALS: BP 100/54
--- NOTE | 2021-07-23 11:18 | NUR ---
Malnutrition screen: Pt admitted s/p fall and dx of sepsis, PNA and R pleural effusion per EMR. Pt w/ fluctuating wt hx ranging from 59kg this admit to 80kg in 2015. Unable to interview pt as he was sleeping and did not wake to verbal cues. Pt observed at bedside w/ moderate facial wasting and mild clavicular muscle wasting, though unsure of baseline appearance. Currently pending PO intake, pt was asleep w/ breakfast tray in front of him. Pt has historically had good PO intake on previous admits per EMR. No edema noted. At this time pt does not meet minimum criteria for malnutrition. Will continue to monitor. Recs: 1. Continue Regular diet as tolerated 2. Monitor need for additional protein/ONS 3. Bowel care per rx 4. Scaled wts Addendum: 07/23/21 at [address] Amended: Links added.
[2021-07-23] MEDS: normal saline 1000ml 1,000 ML IV SCH (15:04)
[2021-07-23 15:05] VITALS: BP 93/50
[2021-07-23] MEDS: piperacillin/tazo 4.5gm/100ml 100 ML IV SCH (16:07)
--- NOTE | 2021-07-23 18:15 | NUR ---
Problems reprioritized. Patient report given, questions answered & plan of care reviewed with AEYSHA Llanes.
[2021-07-23 18:43] VITALS: BP 99/60
[2021-07-23] MEDS: lactobacillus rhamnosus 10,000 MMU CELLS/CAPSULE PO SCH (20:18)
[2021-07-23 22:00] VITALS: BP 101/52
[2021-07-24] MEDS: piperacillin/tazo 4.5gm/100ml 100 ML IV SCH ×2 (01:34→08:13)
[2021-07-24] MEDS: HYDROcodone/acetaminophen 5mg/325mg tablet PO PRN ×2 (01:43→08:17)
[2021-07-24 02:00] VITALS: BP 99/57
[2021-07-24] MEDS: normal saline 1000ml 1,000 ML IV SCH (05:12)
[2021-07-24 06:00] VITALS: BP 109/71
[2021-07-24] MEDS ORDERED: VANCOMYCIN LEVEL IV ONE (07:30)
[2021-07-24 07:54] LABS: BASOPHILS % (AUTO) 0.2 % (0-1); EOSINOPHILS # (AUTO) 0.1 X10'3 (0-0.9); HEMATOCRIT 34.6 % (42.0-52.0); HEMOGLOBIN 11.7 g/dl (14.0-17.9); LYMPHOCYTES % (AUTO) 14.4 % (21-51); MEAN CORPUSCULAR HEMOGLOBIN 30.4 PG (27.0-31.0); MEAN CORPUSCULAR HGB CONC 33.9 g/dL (33.0-36.5); MEAN CORPUSCULAR VOLUME 89.8 FL (78-98); MEAN PLATELET VOLUME 7.6 FL (7.4-10.4); MONOCYTES % (AUTO) 13.7 % (2-12); NEUTROPHILS % (AUTO) 70.7 % (42-75); PLATELET COUNT 101 X10'3 (140-440); RED BLOOD COUNT 3.85 X10'6 (4.70-6.10); RED CELL DISTRIBUTION WIDTH 15.4 % (11.5-14.5); WHITE BLOOD COUNT 7.1 X10'3 (4.5-11.0)
[2021-07-24 07:55] LABS: ALANINE AMINOTRANSFERASE 18 U/L (12-78); ALBUMIN 1.9 G/DL (3.4-5.0); ALBUMIN/GLOBULIN RATIO 0.4 (1.1-1.5); ALKALINE PHOSPHATASE 82 IU/L (46-116); ANION GAP 7 (8-16); ASPARTATE AMINO TRANSFERASE 32 U/L (10-37); BILIRUBIN,TOTAL 0.8 MG/DL (0.1-1.0); BLOOD UREA NITROGEN 23 MG/DL (7-18); BUN/CREATININE RATIO 37.1 (5.4-32.0); CALCIUM 8.6 MG/DL (8.5-10.1); CHLORIDE 104 MMOL/L (99-107); CREATININE 0.62 MG/DL (0.60-1.10); GLUCOSE 89 MG/DL (70-104); POTASSIUM 3.8 MMOL/L (3.5-5.1); SODIUM 137 MMOL/L (135-145); TOTAL CARBON DIOXIDE 26.4 MMOL/L (24-32); TOTAL PROTEIN 6.2 G/DL (6.4-8.2); VANCOMYCIN,TROUGH 7.9 UG/ML (6.0-14.0); eGFR > 90 ML/MIN
[2021-07-24] MEDS: K and/or MAG REPLACEMENT MC SCH (08:00)
[2021-07-24] MEDS ORDERED: methadone 10mg tablet PO SCH (08:00)
[2021-07-24] MEDS: vancomycin/NS 1 GM ADD-VANTAGE 250 ML IV SCH (08:15)
[2021-07-24] MEDS: tizanidine 4mg tablet PO SCH (08:17)
[2021-07-24] MEDS: FLUoxetine 20mg capsule PO SCH (08:17)
[2021-07-24] MEDS: lactobacillus rhamnosus 10,000 MMU CELLS/CAPSULE PO SCH (08:18)
[2021-07-24] MEDS: docusate sod 100mg capsule PO SCH (08:18)
[2021-07-24] MEDS: pantoprazole 40mg Tablet.DR PO SCH (08:18)
[2021-07-24] MEDS: heparin, porcine 5000 units/ml vial SQ SCH (08:18)
[2021-07-24] MEDS ORDERED: HYDR-3965 PO (08:54)
[2021-07-24] MEDS ORDERED: AMOX-580 PO (08:54)
[2021-07-24] MEDS ORDERED: vancomycin inj 500 MG in normal saline 100ml IV soln 100 ML IV ONE (10:00)
--- NOTE | 2021-07-24 10:58 | NUR ---
Pt. received discharge instructions with no further questions; PT EJ removed and intact with no bruising or hematoma; Per Dr. Yusuf patient ready for discharge; Cab called for patient to address listed in chart; Pt. had no questions at time of discharge. [facility]
== END 2021-07-24 11:30 | disposition home or self-care (01) | DRG 720 ==
LOC: ER 14:09 → ED HOLD 20:21 → PCU 3S 22:38
PROVIDERS: ADMIT Family Medicine; ATTEND Internal Medicine
PROC: BW251ZZ Computerized Tomography (CT Scan) of Chest, Abdomen and Pelvis using Low Osmolar Contrast (ICD-10-PCS; principal; 2021-07-22)
DX: A41.9 Sepsis, unspecified organism (principal); J96.01 Acute respiratory failure with hypoxia; I50.33 Acute on chronic diastolic (congestive) heart failure; J18.9 Pneumonia, unspecified organism; K72.10 Chronic hepatic failure without coma; K76.6 Portal hypertension; E88.09 Other disorders of plasma-protein metabolism, not elsewhere classified; E87.1 Hypo-osmolality and hyponatremia; J44.0 Chronic obstructive pulmonary disease with (acute) lower respiratory infection; D69.59 Other secondary thrombocytopenia; K74.60 Unspecified cirrhosis of liver; F17.210 Nicotine dependence, cigarettes, uncomplicated; E87.6 Hypokalemia; B18.2 Chronic viral hepatitis C; G89.4 Chronic pain syndrome; F11.23 Opioid dependence with withdrawal; W11.XXXA Fall on and from ladder, initial encounter; S20.211A Contusion of right front wall of thorax, initial encounter; Y93.89 Activity, other specified; Z79.899 Other long term (current) drug therapy; Y92.090 Kitchen in other non-institutional residence as the place of occurrence of the external cause; Q53.9 Undescended testicle, unspecified; Y99.8 Other external cause status; Z56.0 Unemployment, unspecified; Z88.5 Allergy status to narcotic agent; Z87.01 Personal history of pneumonia (recurrent)
CPT/HCPCS: 36415; 71045; 71260; 74177; 80053; 80061; 80202; 80305; 81003; 83036; 83605; 83735; 83880; 84100; 84145; 84484; 85025; 85610; 85730; 87040; 87081; 93005; 94640; 94760; 96374; 99285; G0378; J1644; J2270; J2543; J3370; J7030; Q9967

== ENCOUNTER 2021-12-04 10:40 | Outpatient (CLI) | payer MEDICAID ==
[~2021-12-04 10:40] MED LIST changes: -DIAZ10TA4 PO
== END 2021-12-04 23:59 | disposition home or self-care (01) ==
LOC: RAD 10:40
PROVIDERS: ATTEND General Practice
DX: F11.20 Opioid dependence, uncomplicated (principal)
CPT/HCPCS: 93005

== ENCOUNTER 2022-05-06 09:31 | Outpatient (CLI) | payer MEDICAID | END 2022-05-06 23:59 | disposition home or self-care (01) | LOC: RAD 09:31 | PROVIDERS: ATTEND General Practice | DX: F11.20 Opioid dependence, uncomplicated (principal) | CPT/HCPCS: 93005 ==

== ENCOUNTER 2022-11-16 21:43 | Emergency (ER) | payer OTHER, MEDICAID ==
[~2022-11-16] VITALS: Ht 160 cm; Wt 75.0 kg
[2022-11-16] MEDS ORDERED: CEPH-585 PO (22:51)
[2022-11-16] MEDS ORDERED: ceFAZolin 1gm IM kit IM ONE (22:55)
[2022-11-16 23:19] VITALS: BP 171/69
== END 2022-11-16 23:21 | disposition home or self-care (01) ==
LOC: ER 21:43
DX: S81.832A Puncture wound without foreign body, left lower leg, initial encounter (principal); J44.9 Chronic obstructive pulmonary disease, unspecified; G89.29 Other chronic pain; M54.9 Dorsalgia, unspecified; F12.10 Cannabis abuse, uncomplicated; F11.10 Opioid abuse, uncomplicated; Z59.00 Homelessness unspecified; Z88.8 Allergy status to other drugs, medicaments and biological substances; Z79.899 Other long term (current) drug therapy; W57.XXXA Bitten or stung by nonvenomous insect and other nonvenomous arthropods, initial encounter; Y93.89 Activity, other specified; Y92.89 Other specified places as the place of occurrence of the external cause; Y99.8 Other external cause status
CPT/HCPCS: 96372; 99284; J0690

== ENCOUNTER 2022-12-26 15:25 | Emergency (ER) | payer OTHER, MEDICAID ==
[~2022-12-26] VITALS: Ht 160 cm; Wt 71.8 kg
[2022-12-26 15:44] VITALS: BP 138/90
== END 2022-12-26 18:30 | disposition left against medical advice (07) ==
LOC: ER 15:25
DX: K59.00 Constipation, unspecified (principal); Z53.21 Procedure and treatment not carried out due to patient leaving prior to being seen by health care provider
CPT/HCPCS: 99281

== ENCOUNTER 2023-12-25 11:58 | Emergency (ER) | payer BC, MEDICAID ==
[~2023-12-25] VITALS: Ht 177.8 cm; Wt 84.6 kg
[2023-12-25 12:44] LABS: BILIRUBIN,URINE NEGATIVE (Neg); CLARITY,URINE CLEAR (Clear); COLOR,URINE YELLOW (Yellow); GLUCOSE, URINE NEGATIVE (Neg); KETONES,URINE NEGATIVE (Neg); LEUKOCYTE ESTERASE ,URINE NEGATIVE (Neg); NITRITES, URINE NEGATIVE (Neg); OCCULT BLOOD,URINE NEGATIVE (Neg); PROTEIN,URINE NEGATIVE (Neg); UROBILINOGEN,URINE 0.2 E.U/dL (0.2-1.0)
[2023-12-25 12:45] LABS: BASOPHILS % (AUTO) 0.4 % (0-1); EOSINOPHILS # (AUTO) 0.1 X10'3 (0-0.9); EOSINOPHILS % (AUTO) 2.2 % (0-6); HEMATOCRIT 35.6 % (42.0-52.0); HEMOGLOBIN 11.3 g/dl (14.0-17.9); LYMPHOCYTES # (AUTO) 1.9 X10'3 (1.1-4.8); LYMPHOCYTES % (AUTO) 29.2 % (21-51); MEAN CORPUSCULAR HGB CONC 31.8 g/dL (33.0-36.5); MEAN CORPUSCULAR VOLUME 72.3 FL (78-98); MEAN PLATELET VOLUME 8.6 FL (7.4-10.4); MONOCYTES # (AUTO) 0.8 X10'3 (0-0.9); MONOCYTES % (AUTO) 12.2 % (2-12); NEUTROPHILS # (AUTO) 3.7 X10'3 (1.8-7.7); PLATELET COUNT 130 X10'3 (140-440); RED BLOOD COUNT 4.93 X10'6 (4.70-6.10); RED CELL DISTRIBUTION WIDTH 21.6 % (11.5-14.5); WHITE BLOOD COUNT 6.6 X10'3 (4.5-11.0)
[2023-12-25 12:48] LABS: UA COLLECTION TYPE CLN CATCH MIDSTREAM
[2023-12-25 13:02] LABS: ALANINE AMINOTRANSFERASE 29 U/L (12-78); ALBUMIN 3.5 G/DL (3.4-5.0); ALBUMIN/GLOBULIN RATIO 0.8 (1.1-1.5); ALKALINE PHOSPHATASE 79 IU/L (46-116); ANION GAP 7 (8-16); ASPARTATE AMINO TRANSFERASE 23 U/L (10-37); BILIRUBIN,TOTAL 0.6 MG/DL (0.1-1.0); BLOOD UREA NITROGEN 14 MG/DL (7-18); BUN/CREATININE RATIO 15.1 (10.0-20.0); CHLORIDE 106 MMOL/L (99-107); CREATININE 0.93 MG/DL (0.60-1.10); GLUCOSE 98 MG/DL (70-104); LIPASE 35 U/L (16-77); POTASSIUM 3.5 MMOL/L (3.5-5.1); SODIUM 139 MMOL/L (135-145); TOTAL CARBON DIOXIDE 25.7 MMOL/L (24-32); TOTAL PROTEIN 7.7 G/DL (6.4-8.2); eCRCL 81 ML/MIN; eGFR 81 ML/MIN
[2023-12-25] MEDS ORDERED: iohexol 300mg/ml 100ml inj. ONE (13:35)
[2023-12-25] MEDS ORDERED: METR-159 PO (14:50)
[2023-12-25 15:09] VITALS: BP 137/91; PULSE 72; RESP 16; TEMP 98; O2SAT 95
== END 2023-12-25 15:11 | disposition home or self-care (01) ==
LOC: ER 11:58
DX: K57.92 Diverticulitis of intestine, part unspecified, without perforation or abscess without bleeding (principal); J44.9 Chronic obstructive pulmonary disease, unspecified; G89.29 Other chronic pain; M54.9 Dorsalgia, unspecified; F12.90 Cannabis use, unspecified, uncomplicated; F11.90 Opioid use, unspecified, uncomplicated; Z56.0 Unemployment, unspecified; Z79.899 Other long term (current) drug therapy
CPT/HCPCS: 74177; 80053; 81003; 83690; 85025; 99285; J3490; Q9967

== ENCOUNTER 2024-01-03 10:11 | Emergency (ER) | payer BC, MEDICAID ==
[~2024-01-03] VITALS: Ht 160 cm; Wt 87.7 kg
[2024-01-03] MEDS ORDERED: CEPH-585 PO (14:14)
[2024-01-03] MEDS ORDERED: SULF1TAB49 PO (14:14)
[2024-01-03] MEDS ORDERED: NAPR-56 PO (14:14)
[2024-01-03] MEDS: ketorolac tromethamine 15mg/ml inj. IM ONE (14:15)
[2024-01-03 14:25] VITALS: BP 111/76; PULSE 101; TEMP 98.2; O2SAT 98
[2024-01-03 14:29] VITALS: RESP 20
[2024-01-04] MEDS ORDERED: OMEP40CA21 PO (14:19)
[2024-01-04] MEDS ORDERED: DOXE50CA4 PO (14:19)
[2024-01-04] MEDS ORDERED: PREG75CA76 PO (14:19)
[2024-01-05] MEDS ORDERED: METH-603 PO ×2 (08:39→09:45)
== END 2024-01-03 14:30 | disposition home or self-care (01) ==
LOC: ER 10:12
DX: L03.116 Cellulitis of left lower limb (principal); J44.9 Chronic obstructive pulmonary disease, unspecified; G89.29 Other chronic pain; M54.9 Dorsalgia, unspecified; F12.90 Cannabis use, unspecified, uncomplicated; F11.90 Opioid use, unspecified, uncomplicated; Z56.0 Unemployment, unspecified; Z98.890 Other specified postprocedural states; Z79.899 Other long term (current) drug therapy
CPT/HCPCS: 96372; 99284; J1885

== ENCOUNTER 2024-03-09 15:19 | Outpatient (CLI) | payer BC, MEDICAID, OTHER ==
[~2024-03-09 15:19] MED LIST changes: +DOXE50CA4 PO; -IBUP-1985 PO; +METH-603 PO; +OMEP40CA21 PO; +PREG75CA76 PO; -TIZA-205 PO
[2024-03-09] MEDS ORDERED: GADOTERATE MEGLUMINE 7.5 MMOL/15 ML VIAL IV ONE (19:12)
== END 2024-03-09 23:59 | disposition home or self-care (01) ==
LOC: MRI 15:19
PROVIDERS: ATTEND Internal Medicine
DX: M86.9 Osteomyelitis, unspecified (principal)
CPT/HCPCS: 73723; A9575

== ENCOUNTER 2024-10-27 00:24 | Emergency (ER) | payer BC, MEDICAID ==
[~2024-10-27] VITALS: Ht 167.6 cm; Wt 95.5 kg
[~2024-10-27 00:24] MED LIST changes: +ALBU2.5V7 NEB; +CEFD300C3 PO; +CYCL-1 PO; -FLUO-167 PO; +FLUT1BLS4 INH; +IBUP-1986 PO; +PRED10TA23 PO
[2024-10-27 00:41] VITALS: TEMP 98
[2024-10-27 01:21] LABS: ALANINE AMINOTRANSFERASE 45 U/L (12-78); ALBUMIN 3.3 G/DL (3.4-5.0); ALKALINE PHOSPHATASE 62 IU/L (46-116); ANION GAP 9 (8-16); ASPARTATE AMINO TRANSFERASE 25 U/L (10-37); BILIRUBIN,TOTAL 0.4 MG/DL (0.1-1.0); BLOOD UREA NITROGEN 30 MG/DL (7-18); CALCIUM 8.9 MG/DL (8.5-10.1); CHLORIDE 108 MMOL/L (99-107); CREATININE 0.91 MG/DL (0.60-1.10); GLUCOSE 152 MG/DL (70-104); SODIUM 139 MMOL/L (135-145); TOTAL CARBON DIOXIDE 21.9 MMOL/L (24-32); TOTAL PROTEIN 6.7 G/DL (6.4-8.2); eCRCL 71 ML/MIN; eGFR 83 ML/MIN
[2024-10-27 01:28] LABS: POTASSIUM 4.5 MMOL/L (3.5-5.1); PRO BRAIN NATRIURETIC PEPTIDE 296 PG/ML (0-125)
[2024-10-27 01:29] LABS: BASOPHILS % (AUTO) 0.1 % (0-1); EOSINOPHILS % (AUTO) 0 % (0-6); HEMOGLOBIN 10.7 g/dl (14.0-17.9); LYMPHOCYTES # (AUTO) 1.2 X10'3 (1.1-4.8); LYMPHOCYTES % (AUTO) 8.4 % (21-51); MEAN CORPUSCULAR HGB CONC 33.5 g/dL (33.0-36.5); MEAN CORPUSCULAR VOLUME 83.7 FL (78-98); MEAN PLATELET VOLUME 7.6 FL (7.4-10.4); MONOCYTES # (AUTO) 0.8 X10'3 (0-0.9); MONOCYTES % (AUTO) 5.4 % (2-12); NEUTROPHILS # (AUTO) 12.2 X10'3 (1.8-7.7); NEUTROPHILS % (AUTO) 86.1 % (42-75); PLATELET COUNT 84 X10'3 (140-440); RED BLOOD COUNT 3.82 X10'6 (4.70-6.10); RED CELL DISTRIBUTION WIDTH 16.7 % (11.5-14.5); WHITE BLOOD COUNT 14.1 X10'3 (4.5-11.0)
[2024-10-27 04:38] VITALS: BP 152/77; PULSE 75; RESP 17; O2SAT 96
== END 2024-10-27 04:41 | disposition home or self-care (01) ==
LOC: ER 00:25
DX: R07.89 Other chest pain (principal); J44.9 Chronic obstructive pulmonary disease, unspecified; G89.29 Other chronic pain; M54.9 Dorsalgia, unspecified; F12.90 Cannabis use, unspecified, uncomplicated; F11.90 Opioid use, unspecified, uncomplicated; Z79.1 Long term (current) use of non-steroidal anti-inflammatories (NSAID); Z79.899 Other long term (current) drug therapy; Z98.890 Other specified postprocedural states; Z56.0 Unemployment, unspecified
CPT/HCPCS: 36415; 71045; 80053; 83880; 84484; 85025; 93005; 99285

== ENCOUNTER 2025-01-27 11:13 | Emergency (ER) | payer MEDICARE, MEDICAID ==
[~2025-01-27] VITALS: Ht 167.6 cm; Wt 87.0 kg
[~2025-01-27 11:13] MED LIST changes: -CEFD300C3 PO; -PRED10TA23 PO
[2025-01-27 11:26] VITALS: BP 136/73; PULSE 92; TEMP 96.9; O2SAT 95
[2025-01-27] MEDS ORDERED: LIDO-52 TOP (11:56)
--- NOTE | 2025-01-27 11:57 | Physician Documentation ---
History of Present Illness ~ Chief Complaint: Back Pain Stated Complaint: BACK PAIN Time Seen by MD: 11:46 Primary Medical Doctor: Fran Samayoa MD Source: patient Mode of Arrival: POV Exam Limitations: no limitations HPI 69-year-old male with known chronic back pain spinal stenosis is cared for by [facility] with his primary care with referrals to physical therapy and chiropractic. No new injuries or concerns or recent falls. Patient is requesting Toradol shot patient takes ibuprofen and Flexeril Medication Reconciliation Allergies: Coded Allergies: No Known Allergies (Unverified , 10/27/24) Scheduled Cyclobenzaprine* (Cyclobenzaprine*), 1 TAB PO ONCE, (Reported) Doxepin HCl (Doxepin HCl), 1 CAP PO HS, (Reported) Fluticasone/Umeclidin/Vilanter (Trelegy Ellipta 100-62.5-25), 1 PUFFS INH DAILY Ibuprofen (Ibuprofen), 1 TAB PO TID, (Reported) Lidocaine (Lidoderm), 1 PATCH TOP DAILY Methadone Hcl* (Dolophine*), 60 MG PO DAILY, (Reported) Omeprazole (Prilosec), 1 CAP PO DAILY, (Reported) Pregabalin (Pregabalin), 1 CAP PO BID, (Reported) Scheduled PRN Albuterol Sulfate (Albuterol Sulfate), 1 VIAL NEB Q4HPRN PRN for wheezing Past Medical History Past Medical History: COPD, Pneumonia, Hepatitis C, Chronic Pain, Chronic Back Pain Past Surgical History: orthopedic surgeries Patient History: FH: dementia FAMILY/OTHER Alcohol Use: None Drug Use: marijuana, heroin Lives with: Family Lives In: Home Occupation: unemployed Review of Systems All Other Systems at this time: Reviewed and Negative Musculoskeletal: Reports: see HPI Physical Exam Physical Exam Vital Signs: RN Vital Signs have been reviewed: Yes, Temperature: 96.9, Source: Temporal, Heart Rate: 92, Respiratory Rate: 17, BP: 136/73, Pulse Oximetry: 95, Weight: 87.050 Physical Exam General: Alert, no apparent distress. Respiratory: Lungs clear, no respiratory distress. Chest: No accessory muscle use. Cardiovascular: Regular rate and rhythm, no murmurs. Gastrointestinal: Soft, nontender, nondistended. Bowels sounds present. Extremities: Normal range of motion, no deformity. no obvious spinal process deformity step-offs or edema. Neurologic: Oriented x4. Psychiatric: Normal mood and affect. Skin: Normal color, warm and dry. No edema, no ecchymosis. Progress Results/Orders Results/Orders Completed Orders - DAPHNEY DE OLIVEIRA NP Ketorolac Trometh 30mg/Ml Vial (Toradol (01/27/25 11:50) Medications Received in ER Medications (Trade) Dose Ordered Sig/Sabine Route PRN Reason Start Time Stop Time Status Last Admin Dose Admin (Toradol inj. 30mg/ml) 30 mg ONCE ONCE IM 01/27/25 11:50 01/27/25 11:51 DC 01/27/25 12:08 30 MG Vital Signs 01/27/25 01/27/25 11:26 12:08 Temp 96.9 Pulse 92 Resp 17 16 B/P (MAP) 136/73 Pulse Ox 95 Medical Decision Making Findings Request for pain shot chronic back pain no new injuries follow up with primary care Departure Time of Disposition: 11:54 Disposition: 01 HOME / SELF CARE / HOMELESS Impression: Primary Impression: Low back pain Additional Impression: Chronic back pain Condition: Stable Discharge Instructions: Chronic Back Pain Additional Instructions: Continue to follow senior living [facility] in her primary care for possible referral to Orthopedics spine the further treatment evaluation of your chronic back pain. Referrals: NO PRIMARY CARE PROVIDER (PCP) Prescriptions Lidocaine (Lidoderm) 5 % Adh..patch 1 PATCH TOP DAILY for 30 Days, #30 PATCH 0 Refills may wear up to 12 hours Prov: DAPHNEY DE OLIVEIRA NP 01/27/25 Education Educated: Patient Educated regarding: diagnosis, treatment, need for follow up Signature Scribe Signature: No scribe Attestation: The note accurately reflects work and decisions made by me.Daphney De Oliveira - SCAFFOLD SETTER 01/27/25 11:57 DAPHNEY DE OLIVEIRA NP Jan 27, 2025 11:57
[2025-01-27 12:08] VITALS: RESP 16
[2025-01-27] MEDS: ketorolac trometh 30MG/ML vial 30 MG/ML VIAL IM ONE (12:08)
== END 2025-01-27 12:42 | disposition home or self-care (01) ==
LOC: ER 11:14
DX: G89.29 Other chronic pain (principal); M54.50 Low back pain, unspecified; F12.90 Cannabis use, unspecified, uncomplicated; F11.90 Opioid use, unspecified, uncomplicated; J44.9 Chronic obstructive pulmonary disease, unspecified
CPT/HCPCS: 96372; 99283; J1885

== ENCOUNTER 2025-03-21 13:49 | Outpatient (CLI) | payer MEDICARE, MEDICAID ==
[~2025-03-21] VITALS: Ht 170.2 cm; Wt 95.3 kg
[~2025-03-21 13:49] MED LIST changes: +LIDO-52 TOP
[2025-03-21 14:55] VITALS: PULSE 72; RESP 16; O2SAT 92
[2025-03-21] MEDS: albuterol 2.5 MG/3 ML nebule NEB ONE (14:55)
[2025-03-21 15:18] VITALS: PULSE 82; RESP 16
== END 2025-03-21 23:59 | disposition home or self-care (01) ==
LOC: RT 13:49
PROVIDERS: ATTEND Family Medicine
DX: R06.02 Shortness of breath (principal)
CPT/HCPCS: 94060; 94729; 94760; A4615